=== PATIENT | male | born 1940 | race Caucasian/White ===

== ENCOUNTER 2022-05-08 13:28 | Observation (INO) | payer MEDICARE ==
[2022-05-08] MEDS ORDERED: Acetaminophen 325 MG TAB PO PRN (17:22)
[2022-05-08 18:24] VITALS: BMI 27.2
[2022-05-08 18:33] LABS: Troponin I Less than 0.010 ng/mL (< 0.028)
[2022-05-08 19:00] LABS: Hemoglobin A1c 5.6 % (4.0-6.0)
[2022-05-08] MEDS ORDERED: Atorvastatin Calcium 20 MG TAB PO SCH (21:00)
[2022-05-08 21:27] LABS: Troponin I Less than 0.010 ng/mL (< 0.028)
[2022-05-09 06:15] LABS: Anion Gap 13 mmol/L (10-20); BUN (Urea Nitrogen) 32 mg/dL (8.4-25.7); Calc. Creatinine Clearance 65 mL/min (70-130); Calcium 9.2 mg/dL (7.8-10.44); Carbon Dioxide 24 mmol/L (23-31); Chloride 104 mmol/L (98-107); Estimated GFR 66; Glucose 99 mg/dL (83-110); Potassium 3.8 mmol/L (3.5-5.1); Sodium 137 mmol/L (136-145)
[2022-05-09 06:17] LABS: #Eosinphils 0.2 thou/uL (0.0-0.7); #Lymphocytes 1.5 thou/uL (1.20-3.40); #Neutrophils 5.8 thou/uL (1.40-6.50); %Basophils 0.4 % (0.0-1.0); %Eosinophils 1.9 % (0.0-10.0); %Monocytes 11.6 % (0.0-10.0); %Neutrophils 68.1 % (42.0-75.0); Hemoglobin 12.3 g/dL (14.0-18.0); Mean Corpuscular HGB CONC 34.4 g/dL (32.0-36.0); Mean Corpuscular Hemoglobin 33.5 pg (27.0-31.0); Mean Corpuscular Volume 97.5 fl (78.0-98.0); Mean Platelet Volume 8.5 fL (7.4-10.4); Platelet Count 248 10x3/uL (130-400); RBC Distribution Width 13.8 % (11.5-14.5); Red Blood Cell (RBC) Count 3.67 mill/uL (4.70-6.10); White Blood Cell (WBC) Count 8.5 10x3/uL (4.8-10.8)
[2022-05-09 08:02] LABS: Cardiac Risk 4.9 (Less than 4.5)
[2022-05-09] MEDS ORDERED: Enoxaparin Sodium 40 MG/0.4 ML SYRINGE SC SCH (09:00)
[2022-05-09] MEDS ORDERED: Losartan/Hydrochlorothiazide 100 mg/25 mg Tablet PO SCH (09:00)
[2022-05-09] MEDS ORDERED: ADENOSINE 60 MG/20 ML VIAL ONE (09:58)
[2022-05-09 12:59] VITALS: BP 134/78; TEMP 98.9
== END 2022-05-09 16:01 | disposition home or self-care (01) ==
LOC: 2SW 15:50
PROVIDERS: ADMIT Student in an Organized Health Care Education/Training Program; ATTEND Student in an Organized Health Care Education/Training Program
DX: R07.89 Other chest pain (principal); I10 Essential (primary) hypertension; E78.5 Hyperlipidemia, unspecified; M10.9 Gout, unspecified; M47.812 Spondylosis without myelopathy or radiculopathy, cervical region; M43.12 Spondylolisthesis, cervical region; H91.90 Unspecified hearing loss, unspecified ear; I45.4 Nonspecific intraventricular block; F17.220 Nicotine dependence, chewing tobacco, uncomplicated; Z79.899 Other long term (current) drug therapy; Z20.822 Contact with and (suspected) exposure to COVID-19
CPT/HCPCS: 72040; 78452; 80048; 80061; 83036; 84443; 84484; 85025; 93005; 93017; A9500; U0003; U0005; 36415; 93010; 96372; G0378; J0153; J1650